=== PATIENT | female | born 1970 | race Native Hawaiian/Other Pacific Islander ===

== ENCOUNTER 2017-08-17 10:09 | Emergency (ER) | payer OTHER, BC ==
[2017-08-17 10:20] VITALS: BMI 25.0
--- NOTE | 2017-08-17 11:11 | C.PDOC ---
History Of Present Illness 47-year-old female, who is a [employer] employee, presents to the ED for evaluation of right 4th finger pain. Patient states her finger was accidentally caught between an ultrasound machine and the wall last night while she was working. Patient states she is left-hand dominant. She denies other trauma/ injuries or sensory changes. Time Seen by Provider: 08/17/17 10:18 Chief Complaint (Nursing): Finger,Hand,&Wrist History Per: Patient History/Exam Limitations: no limitations Onset/Duration Of Symptoms: Hrs Current Symptoms Are (Timing): Still Present Quality: "Pain" Severity: Mild Exacerbating Factor(s): Movement Additional History Per: Patient Past Medical History Reviewed: Historical Data, Nursing Documentation, Vital Signs Vital Signs: Last Vital Signs Temp 98 F 08/17/17 11:25 Pulse 67 08/17/17 11:25 Resp 20 08/17/17 11:25 BP 114/82 08/17/17 11:25 Pulse Ox 97 08/17/17 11:53 - Medical History PMH: Pulmonary Embolism, Chronic Kidney Disease (UROSEPSIS, SEPTIC SHOCK) Surgical History: No Surg Hx - [facility] Procedures CENTRAL VENOUS CATHETER PLACEMENT WITH GUIDANCE (12/07/13) ESOPHAGOGASTRODUODENOSCOPY [EGD] W/CLOSED BIOPSY (01/29/14) Family History: States: No Known Family Hx - Social History Hx Tobacco Use: No Hx Alcohol Use: No Hx Substance Use: No - Immunization History Hx Tetanus Toxoid Vaccination: No Hx Influenza Vaccination: No Hx Pneumococcal Vaccination: No Review Of Systems Constitutional: Negative for: Fever Musculoskeletal: Positive for: Other (right 4th finger pain ) Skin: Negative for: Rash Neurological: Negative for: Weakness, Numbness, Headache Physical Exam - Physical Exam Appears: Well, Non-toxic, No Acute Distress Skin: Normal Color, Warm, Dry, Other (small abrasions at lateral & medial aspects of right 4th digit. no active bleeding ) Head: Atraumatic, Normacephalic Eye(s): bilateral: Normal Inspection Neck: Supple Cardiovascular: Rhythm Regular Respiratory: Normal Breath Sounds, No Rales, No Rhonchi, No Wheezing Extremity: Normal ROM, Tenderness (mild TTP at right 4th digit ), Capillary Refill (< 2 sec all digits ), No Deformity, No Swelling Extremity: Bilateral: Normal Color And Temperature Pulses: Left Radial: Normal, Right Radial: Normal Neurological/Psych: Oriented x3, Normal Sensation (B/L hands/digits ) Gait: Steady ED Course And Treatment O2 Sat by Pulse Oximetry: 97 (on RA) Pulse Ox Interpretation: Normal - Other Rad right 4th digit X-Ray: Interpreted by Me, Viewed By Me (possible nodiaplced fx of proximal phalanx vs blood vessel ) Progress Note: Patient given PO Motrin. Xray of right 4th digit ordered and reviewed - shows ? nondisplaced fx of proximal phalanx vs blood vessel. Patient placed in finger splint by obstetrical tech and checked by me. Patient instructed to follow up with hand surgeon within 1 week, and understands she should return to ED if symptoms worsen. Reevaluation Time: 11:05 Reassessment Condition: Improved Disposition Counseled Patient/Family Regarding: Studies Performed, Diagnosis, Need For Followup, Rx Given - Disposition Referrals: Abimael Dougherty MD [Staff Provider] - Disposition: HOME/ ROUTINE Disposition Time: 11:05 Condition: STABLE Additional Instructions: FOLLOW UP WITH HAND SURGEON WITHIN 1 WEEK USE PAIN MEDICATION NEEDED RETURN TO ER IF SYMPTOMS WORSEN Prescriptions: Acetaminophen [Tylenol 325mg tab] 650 mg PO Q6 PRN #30 tab PRN Reason: pain/fever Instructions: Finger Fracture (DC) Forms: [employer] (Slovak) Print Language: MARTINIQUAIS - POA Present On Arrival: Falls Or Trauma - Clinical Impression Clinical Impression: Finger fracture, right - Scribe Statement The provider has reviewed the documentation as recorded by the Scribe (Ninfa Deleon) Provider Attestation: All medical record entries made by the Scribe were at my direction and personally dictated by me. I have reviewed the chart and agree that the record accurately reflects my personal performance of the history, physical exam, medical decision making, and the department course for this patient. I have also personally directed, reviewed, and agree with the discharge instructions and disposition.
[2017-08-17 11:25] VITALS: BP 114/82; PULSE 67; RESP 20; TEMP 98
--- NOTE | 2017-08-17 11:25 | RAD ---
PROCEDURE: Right ring finger radiographs. HISTORY: RIGHT FINGER INJURY COMPARISON: None. TECHNIQUE: AP radiograph of the right hand, as well as spot oblique and lateral images of ring finger were obtained. FINDINGS: RIGHT RING FINGER: Normal right ring finger, without fracture or focal lesion. Remainder of the right hand (as seen on the AP view) grossly unremarkable. JOINTS: Normal. SOFT TISSUES: Normal. OTHER FINDINGS: None. IMPRESSION: Normal right ring finger radiographs.
[2017-08-17 11:41] VITALS: O2SAT 97
== END 2017-08-17 11:28 | disposition home or self-care (01) ==
LOC: C.ER 10:09
DX: S62.604A Fracture of unspecified phalanx of right ring finger, initial encounter for closed fracture (principal); W31.89XA Contact with other specified machinery, initial encounter; Y92.238 Other place in hospital as the place of occurrence of the external cause; Y99.0 Civilian activity done for income or pay